=== PATIENT | male | born 1990 | race American Indian/Alaskan Native ===

== ENCOUNTER 2020-02-15 10:52 | Emergency (ER) | payer SELFPAY ==
[2020-02-15 11:19] VITALS: BP 137/87
--- NOTE | 2020-02-15 11:34 | Emergency Department Report ---
Blank Doc - Documentation Documentation: 29-year-old male that presents with possible abscess. This initial assessment/diagnostic orders/clinical plan/treatment(s) is/are subject to change based on patient's health status, clinical progression and re- assessment by fellow clinical providers in the ED. Further treatment and workup at subsequent clinical providers discretion. Patient/guardians urged not to elope from the ED as their condition may be serious if not clinically assessed and managed. Initial orders include: 1- Patient sent to [facility] for further evaluation and treatment
[2020-02-15] MEDS ORDERED: CLINDAMYCIN 300 MG CAP PO ONE (15:29)
[2020-02-15] MEDS ORDERED: KETOROLAC 10 MG TAB PO ONE (15:29)
--- NOTE | 2020-02-15 15:33 | Emergency Department Report ---
ED General Adult HPI - General Chief complaint: Skin/Abscess/Foreign Body Stated complaint: CYST REMOVED Time Seen by Provider: 02/15/20 11:33 Source: patient Mode of arrival: Ambulatory Limitations: No Limitations - History of Present Illness Initial comments: 29-year-old male with no significant past medical history presented to the ER today complaining of a tender swollen area at his pubic area. He states that he noticed it about 2 weeks ago, since then he has been getting bigger, and more painful. He denies any insect bite, or injury to the area. He denies any history of abscesses or similar symptoms in the past. He denies any history of diabetes or any immunocompromising disease. He denies any fever or chills. MD Complaint: Sore/Swollen area -: Gradual, week(s) (2) Location: pelvis - Related Data Previous Rx's Medication Instructions Recorded Last Taken Type Ibuprofen [Motrin 800 MG tab] 800 mg PO TID PRN #45 tablet 01/09/13 Unknown Rx Ibuprofen [Motrin 800 MG tab] 800 mg PO TID PRN #20 tablet 12/23/13 Unknown Rx Clindamycin [Clindamycin CAP] 300 mg PO QID #40 capsule 02/15/20 Unknown Rx Ketorolac [Toradol] 10 mg PO Q6H PRN #20 tablet 02/15/20 Unknown Rx Allergies Allergy/AdvReac Type Severity Reaction Status Date / Time No Known Allergies Allergy Unverified 01/09/13 16:55 ED Review of Systems ROS: Stated complaint: CYST REMOVED Other details as noted in HPI Comment: All other systems reviewed and negative Constitutional: denies: chills, fever Respiratory: denies: cough, shortness of breath, wheezing Cardiovascular: denies: chest pain, palpitations Skin: rash, lesions ED Past Medical Hx - Past Medical History Previous Medical History?: No - Surgical History Past Surgical History?: No - Social History Smoking Status: Never Smoker Substance Use Type: None - Medications Home Medications: Home Medications Medication Instructions Recorded Confirmed Last Taken Type Ibuprofen [Motrin 800 MG tab] 800 mg PO TID PRN #45 tablet 01/09/13 Unknown Rx Ibuprofen [Motrin 800 MG tab] 800 mg PO TID PRN #20 tablet 12/23/13 Unknown Rx Clindamycin [Clindamycin CAP] 300 mg PO QID #40 capsule 02/15/20 Unknown Rx Ketorolac [Toradol] 10 mg PO Q6H PRN #20 tablet 02/15/20 Unknown Rx ED Physical Exam - General Limitations: No Limitations General appearance: alert, in no apparent distress - Head Head exam: Present: atraumatic, normocephalic - Eye Eye exam: Present: normal appearance - Respiratory Respiratory exam: Absent: respiratory distress - Cardiovascular Cardiovascular Exam: Present: regular rate - Neurological Exam Neurological exam: Present: alert, oriented X3, CN II-XII intact, normal gait - Skin Skin exam: Present: other (there is an erythematous tender indurated area noted in pubic area with associated mild cellulitis. No fluctuance noted. no streaking. No lymphangitis. ) ED Course Vital Signs 02/15/20 11:17 Temperature 98.1 F Pulse Rate 98 H Respiratory 18 Rate Blood Pressure 137/87 O2 Sat by Pulse 97 Oximetry ED Medical Decision Making - Medical Decision Making 5118 -- 29 year old male with no significant pmhx presented to ED c/o tender swollen area to his pubic area. Physical exam show a well-appearing male, who is in no acute distress, with stable vital signs, who is not toxic or ill- appearing. Examination of the pubic area suggest cellulitis vs early abscess. I do not see an indication for an I&D at this time. Patient will be started on oral antibiotic treatment, he is also encouraged to do warm compresses, but I did explain to him that if the area appears to be getting worse and more swollen despite taking antibiotics he needs to return so we can reevaluate for I&D. Patient expressed understanding of instructions and agrees with plan. Patient was stable at time of discharge. Critical care attestation.: If time is entered above; I have spent that time in minutes in the direct care of this critically ill patient, excluding procedure time. ED Disposition Clinical Impression: Cellulitis Disposition: DC-01 TO HOME OR SELFCARE Is pt being admited?: No Does the pt Need Aspirin: No Condition: Stable Instructions: Cellulitis, Adult Additional Instructions: Take antibiotics as prescribed. Do warm compresses twice a day as instructed. Take the pain medication as prescribed. Return to the ER if area appears to be getting worse despite antibiotics. Otherwise follow-up with the primary care doctor. Prescriptions: Clindamycin [Clindamycin CAP] 300 mg PO QID #40 capsule Ketorolac [Toradol] 10 mg PO Q6H PRN #20 tablet PRN Reason: Pain , Severe (7-10) Referrals: ML BANKS MD [Staff Physician] - 3-5 Days Forms: Work/School Release Form(ED) Time of Disposition: 15:33
== END 2020-02-15 15:43 | disposition home or self-care (01) ==
LOC: ED 10:52
DX: K65.0 Generalized (acute) peritonitis (principal)
CPT/HCPCS: 99282

== ENCOUNTER 2020-02-29 20:27 | Emergency (ER) | payer SELFPAY ==
--- NOTE | 2020-02-29 21:04 | Emergency Department Report ---
Stated Complaint: POSS STD Time Seen by Provider: 02/29/20 21:00 - HPI History of Present Illness: This is a 29-year-old male presents the emergency department chief complaint of burning when he urinates for the past few days. He does report recent unprotected sexual partner. He denies any other associated symptoms such as fever, chills, night sweats, headache, dizziness, blurry vision, nausea, vomiting, diarrhea, chest pain, shortness of breath, penile discharge, testicular pain, abdominal or back pain. He denies any penile lesions. He denies any known past medical history, current medications or known allergies to medications. - ROS Review of Systems: See HPI - Exam Physical Exam: GENERAL APPEARANCE: Well-developed, well-nourished, no acute distress HEENT: Normocephalic and atraumatic. No scleral icterus. Pupils are equal, round, and reactive to light and accommodation. No conjunctival injection is noted. Oropharynx is clear. Mouth revealed good dentition, no lesions. Tympanic membranes are clear. NECK: Supple. Trachea is midline. No evidence of thyroid enlargement. No lymphadenopathy or tenderness. CHEST: Symmetric. Nontender to palpation. LUNGS: Breath sounds are equal and clear bilaterally. No wheezes, rhonchi, or rales. HEART: Regular rate and rhythm with normal S1 and S2. No murmurs, gallops, or rubs. BREASTS: Symmetrical. No skin or nipple retractions. No nipple discharges or masses. ABDOMEN: Soft, flat, and benign. No mass, tenderness, guarding, or rebound. No organomegaly or hernia. Bowel sounds are present. No CVA tenderness or flank mass. GENITOURINARY: Deferred RECTAL: Deferred EXTREMITIES: No cyanosis, clubbing, or edema. No lower extreme edema, negative Homans sign bilaterally NEUROLOGIC: No focal sensory or motor deficits are noted. Gait is normal. Cranial nerves II through XII are intact. Deep tendon reflexes are intact. PSYCHIATRIC: The patient is awake, alert, and oriented x3. Recent and remote memory is intact. Appropriate mood and affect. SKIN: Warm, dry, and well perfused. Good turgor. No lesions, nodules or rashes are noted. No onychomycosis. LYMPHATICS: No cervical, axillary, or groin adenopathy is noted. MSE screening note: Focused history and physical exam performed. Due to findings the following was ordered: Patient was informed that we no longer treat or test for STIs in the emergency department due to the lack of any other symptoms I will refer him to the health department [facility]. He is agreeable this plan will be discharged in stable condition. ED Disposition for MSE Clinical Impression: Possible exposure to STD Disposition: MED SCREENING EXAM-LEFT Is pt being admited?: No Condition: Stable Instructions: Safe Sex Referrals: [facility] [Provider Group] - 3-5 Days [facility] [Outside] - 3-5 Days Time of Disposition: 21:03
== END 2020-02-29 21:24 | disposition left against medical advice (07) ==
LOC: ED 20:27
DX: Z00.8 Encounter for other general examination (principal); Z53.21 Procedure and treatment not carried out due to patient leaving prior to being seen by health care provider